=== PATIENT | female | born 1990 | race Caucasian/White ===

== ENCOUNTER 2018-02-15 15:49 | Emergency (ER) | payer OTHER ==
[~2018-02-15] VITALS: Ht 165.1 cm; Wt 68.0 kg
[~2018-02-15 15:49] MED LIST: ACETAMINOPHEN-1 EAC1 PO; ADDERALL 10 MG10 MG PO; ALKA-SELTZER O1 EACH PO; ASPIRIN81 M2 PO; ATIVAN0.5 M1 PO; BUPRENORPHINE HC2 MG SL; CIPRO250 M1 PO; CIPRO500 MG PO; CIPROFLOXACIN500 M1 PO; CLEOCIN HCL150 MG PO; CYCLOBENZAPRINE5 MG PO; FLEXERIL PO; HYDROCODON-ACE1 EAC7 PO; HYDROCODONE-AP1 EAC6 PO; HYDROXYCHLOROQ200 M1 PO; HYTRIN 5 M5 MG/1 CAP PO; IBUPROFEN 800800 M1 PO; LABETALOL 100100 MG GT; LEVAQUIN 500 M500 M2 PO; LOPRESSOR50 PO; MACROBID 100 M100 M1 PO; MAGOX 400400 MG PO; MOBIC7.5 MG PO; MULTIVITAMINS1 EAC7; NOHOMEMEDICATIONS; NORCO 5-325 TA1 EAC1 PO; NORCO 5-325 TA1 EACH PO; NORVASC10 MG PO; OXYCODONE HCL 55 MG PO; PENICILLIN VK500 M1 PO; PERCOCET 5-3251 EACH PO; PREDNISONE 20 M20 MG PO; PROAIR HFA8.5 GM INH; PYRIDIUM200 MG PO; REMERON15 MG; STRATTERA10 MG; ULTRAM 50MG TAB50 MG PO; VENTOLIN HFA 1818 GM INH; VITATRUE COMBO1 EACH PO; XANAX 0.25 MG0.25 MG; XANAX 0.5 MG0.5 MG PO; XANAX1 MG PO; ZOFRAN ODT4 MG PO; ZOFRAN4 MG PO
[2018-02-15] MEDS ORDERED: REMERON15 M2 PO (15:58)
[2018-02-15] MEDS ORDERED: HYDROCODONE-AP1 EAC6 PO (17:03)
[2018-02-15 17:14] VITALS: BP 188/116
== END 2018-02-15 17:14 | disposition home or self-care (01) ==
LOC: M.ERS 15:49
DX: K08.89 Other specified disorders of teeth and supporting structures (principal); F41.0 Panic disorder [episodic paroxysmal anxiety]; F17.210 Nicotine dependence, cigarettes, uncomplicated; Z88.8 Allergy status to other drugs, medicaments and biological substances; Z87.442 Personal history of urinary calculi

== ENCOUNTER 2019-02-14 21:03 | Emergency (ER) | payer OTHER ==
[~2019-02-14 21:03] MED LIST changes: +REMERON15 M2 PO
== END 2019-02-14 22:34 ==
LOC: M.ERS 21:03
DX: Z53.21 Procedure and treatment not carried out due to patient leaving prior to being seen by health care provider (principal)

== ENCOUNTER 2019-03-31 19:58 | Emergency (ER) | payer OTHER | END 2019-03-31 20:06 | disposition left against medical advice (07) | LOC: M.ERS 19:58 | DX: Z53.21 Procedure and treatment not carried out due to patient leaving prior to being seen by health care provider (principal) ==

== ENCOUNTER 2019-04-05 20:58 | Emergency (ER) | payer OTHER ==
[~2019-04-05] VITALS: Ht 165.1 cm; Wt 61.0 kg
[2019-04-05] MEDS ORDERED: CLONAZEPAM 0.50.5 M1 PO (21:11)
[2019-04-05 21:33] LABS: ABSOLUTE BASOPHILS 0.2 thou/uL (0.0-0.2); ABSOLUTE EOSINOPHILS 0.1 thou/uL (0.0-0.7); ABSOLUTE LYMPHOCYTES 2.5 thou/uL (0.8-5.3); ABSOLUTE MONOCYTES 0.6 thou/uL (0.0-1.2); ABSOLUTE NEUTROPHILS 7.8 thou/uL (1.6-8.1); BASOPHILS 1.5 %; EOSINOPHILS 0.8 %; HEMATOCRIT 35.5 % (37.0-47.0); HEMOGLOBIN 11.8 gm/dL (12.0-15.0); LYMPHOCYTES 22.3 %; MCH 27.9 pg (26.0-34.0); MCHC 33.3 g/dL (28.0-37.0); MCV 83.8 fL (80.0-100.0); MONOCYTES 5.1 %; MPV 10.4 fl. (7.2-11.1); NUCLEATED RBCS 0 /100WBC; PLATELET COUNT* 124 thou/uL (150-400); POLYS 70.3 %; RBC 4.24 mil/uL (4.20-5.00); RDW-CV 12.8 % (10.5-14.5); WBC 11.1 thou/uL (4.0-11.0)
[2019-04-05 21:41] LABS: ANION GAP 8 mmol/L (7-16); BUN 6 mg/dL (7-18); CALCIUM 8.4 mg/dL (8.5-10.1); CHLORIDE 104 mmol/L (98-107); CO2 27 mmol/L (21-32); GLUCOSE 120 mg/dL (70-99); SODIUM 139 mmol/L (136-145)
[2019-04-05 21:42] LABS: POTASSIUM 2.9 mmol/L (3.5-5.1)
[2019-04-05 21:50] LABS: ALBUMIN 3.2 g/dL (3.4-5.0); ALKALINE PHOSPHATASE 61 U/L (46-116); SGOT 17 U/L (15-37); SGPT 21 U/L (30-65); TOTAL BILIRUBIN 0.1 mg/dL (<0.1-1.0); TOTAL PROTEIN 7.5 g/dL (6.4-8.2); TROPONIN-I LEVEL <0.06 ng/mL (<0.06)
[2019-04-05 23:25] LABS: POTASSIUM 3.1 mmol/L (3.5-5.1); TROPONIN-I LEVEL <0.06 ng/mL (<0.06)
[2019-04-05] MEDS ORDERED: MAGOX 400400 MG PO (23:47)
[2019-04-05] MEDS ORDERED: POTASSIUM20 PO (23:47)
[2019-04-06 00:08] VITALS: BP 118/75
--- NOTE | 2019-04-06 11:35 | EKG ---
[place] [address] ELECTROCARDIOGRAM REPORT Name: ZORAIDA GARDNER Room: [facility]#: [id number] Admission: 04/05/19 Attend Phys: Discharge: 04/06/19 Date of : 88 Report #: [id number] THIS REPORT FOR: //name// [facility] ED Test Date: 2019-04-05 Test Time: 21:16:54 Pat Name: ZORAIDA GARDNER Department: Room: Gender: F [employer]: [place] : 1990 Requested By: Jean Carolina Order Number: [id number] MD: William Philip Measurements Intervals [place] Rate: 87 P: 46 ME: 169 QRS: -12 QRSD: 107 T: 36 QT: 346 QTc: 417 Interpretive Statements Sinus rhythm RSR' in V1 or V2, probably normal variant Possible left atrial enlargement Left axis deviation Compared to ECG 02/18/2017 18:09:18 No significant changes Electronically Signed On 04-06-2019 11:35:07 CDT by William Philip [email or web address] <ELECTRONICALLY SIGNED> By: William Philip MD, [facility] 04/06/19 1135 15 15 William Philip MD, [facility] /EPI
== END 2019-04-06 00:10 | disposition home or self-care (01) ==
LOC: M.ERS 20:58
PROVIDERS: Emergency Medicine Emergency Medical Services
DX: F41.9 Anxiety disorder, unspecified (principal); E87.6 Hypokalemia; M32.9 Systemic lupus erythematosus, unspecified; F17.210 Nicotine dependence, cigarettes, uncomplicated; Z88.8 Allergy status to other drugs, medicaments and biological substances; Z90.49 Acquired absence of other specified parts of digestive tract; Z87.442 Personal history of urinary calculi

== ENCOUNTER 2019-04-30 14:26 | Emergency (ER) | payer OTHER ==
[~2019-04-30] VITALS: Ht 170.2 cm; Wt 61.2 kg
[~2019-04-30 14:26] MED LIST changes: +CLONAZEPAM 0.50.5 M1 PO; +POTASSIUM20 PO
[2019-04-30] MEDS ORDERED: NEURONTIN 400400 M1 PO (14:42)
[2019-04-30] MEDS ORDERED: PREDNISONE 10 M10 MG PO (14:42)
[2019-04-30] MEDS ORDERED: HYDROCHLOROTHIA25 M2 PO (14:42)
[2019-04-30] MEDS ORDERED: HYDROXYCHLOROQ200 M1 PO (14:43)
[2019-04-30] MEDS ORDERED: KEFLEX500 M1 PO (15:09)
[2019-04-30] MEDS ORDERED: NORCO 5-325 TA1 EAC1 PO (15:09)
[2019-04-30] MEDS ORDERED: BACTRIM DS TAB1 EACH PO (15:09)
[2019-04-30 15:17] VITALS: BP 125/80
== END 2019-04-30 15:18 | disposition home or self-care (01) ==
LOC: M.ERS 14:26
DX: S71.102A Unspecified open wound, left thigh, initial encounter (principal); L02.416 Cutaneous abscess of left lower limb; F41.0 Panic disorder [episodic paroxysmal anxiety]; M32.9 Systemic lupus erythematosus, unspecified; F17.210 Nicotine dependence, cigarettes, uncomplicated; Z90.49 Acquired absence of other specified parts of digestive tract; Z87.442 Personal history of urinary calculi; Z88.8 Allergy status to other drugs, medicaments and biological substances; X58.XXXA Exposure to other specified factors, initial encounter; Y93.89 Activity, other specified; Y92.89 Other specified places as the place of occurrence of the external cause; Y99.8 Other external cause status

== ENCOUNTER 2019-07-22 14:24 | Emergency (ER) | payer MEDICAID ==
[~2019-07-22] VITALS: Ht 162.6 cm; Wt 59.0 kg
[~2019-07-22 14:24] MED LIST changes: +BACTRIM DS TAB1 EACH PO; +HYDROCHLOROTHIA25 M2 PO; +KEFLEX500 M1 PO; +NEURONTIN 400400 M1 PO; +PREDNISONE 10 M10 MG PO
[2019-07-22] MEDS ORDERED: GABAPENTIN100 MG PO (14:42)
[2019-07-22] MEDS ORDERED: AMOXICILLIN 25250 M1 PO (14:42)
[2019-07-22] MEDS ORDERED: CEFDINIR300 MG PO (14:55)
[2019-07-22] MEDS ORDERED: NORCO 5-325 TA1 EAC1 PO (14:55)
[2019-07-22 14:57] VITALS: BP 139/89
== END 2019-07-22 14:57 | disposition home or self-care (01) ==
LOC: M.ERS 14:24
DX: H66.93 Otitis media, unspecified, bilateral (principal); A18.4 Tuberculosis of skin and subcutaneous tissue; F41.0 Panic disorder [episodic paroxysmal anxiety]; F17.210 Nicotine dependence, cigarettes, uncomplicated; Z88.5 Allergy status to narcotic agent; Z88.8 Allergy status to other drugs, medicaments and biological substances; Z90.49 Acquired absence of other specified parts of digestive tract; Z87.442 Personal history of urinary calculi

== ENCOUNTER 2019-08-05 18:29 | Emergency (ER) | payer MEDICAID ==
[~2019-08-05] VITALS: Ht 165.1 cm; Wt 59.0 kg
[~2019-08-05 18:29] MED LIST changes: +AMOXICILLIN 25250 M1 PO; +CEFDINIR300 MG PO; +GABAPENTIN100 MG PO
[2019-08-05] MEDS ORDERED: PLAQUENIL200 MG PO (18:40)
[2019-08-05] MEDS ORDERED: KLONOPIN0.5 MG PO (19:02)
[2019-08-05] MEDS ORDERED: PHENERGAN 25 MG25 M1 PO ×2 (19:03)
[2019-08-05 19:16] VITALS: BP 159/105
== END 2019-08-05 19:17 | disposition home or self-care (01) ==
LOC: M.ERS 18:29
DX: F41.9 Anxiety disorder, unspecified (principal); Z76.0 Encounter for issue of repeat prescription; M32.9 Systemic lupus erythematosus, unspecified; F17.210 Nicotine dependence, cigarettes, uncomplicated; Z88.5 Allergy status to narcotic agent; Z88.8 Allergy status to other drugs, medicaments and biological substances; Z90.49 Acquired absence of other specified parts of digestive tract; Z87.442 Personal history of urinary calculi

== ENCOUNTER 2019-08-06 18:02 | Emergency (ER) | payer MEDICAID ==
[~2019-08-06] VITALS: Ht 172.7 cm; Wt 59.0 kg
[~2019-08-06 18:02] MED LIST changes: +KLONOPIN0.5 MG PO; +PHENERGAN 25 MG25 M1 PO; +PLAQUENIL200 MG PO
[2019-08-06 18:14] VITALS: BP 150/109
[2019-08-06 18:34] LABS: NUCLEATED RBCS 0 /100WBC
[2019-08-06 18:36] LABS: ABSOLUTE BASOPHILS 0.1 thou/uL (0.0-0.2); ABSOLUTE LYMPHOCYTES 2.9 thou/uL (0.8-5.3); ABSOLUTE MONOCYTES 0.7 thou/uL (0.0-1.2); ABSOLUTE NEUTROPHILS 5.1 thou/uL (1.6-8.1); BASOPHILS 0.8 %; EOSINOPHILS 0.4 %; HEMATOCRIT 40.7 % (37.0-47.0); MCH 29.4 pg (26.0-34.0); MCHC 34.4 g/dL (28.0-37.0); MCV 85.4 fL (80.0-100.0); MONOCYTES 7.9 %; MPV 9.8 fl. (7.2-11.1); POLYS 57.9 %; RBC 4.77 mil/uL (4.20-5.00); RDW-CV 12.9 % (10.5-14.5); WBC 8.8 thou/uL (4.0-11.0)
[2019-08-06 18:49] LABS: CALCIUM 9.5 mg/dL (8.5-10.1); CREATININE 0.8 mg/dL (0.6-1.3); PLATELET COUNT* 46 thou/uL (150-400); POTASSIUM 4.2 mmol/L (3.5-5.1)
[2019-08-06 20:57] VITALS: BP 0/0
[2019-08-25] MEDS ORDERED: DEXAMETHASONE 44 M1 PO (17:43)
== END 2019-08-06 20:59 | disposition left against medical advice (07) ==
LOC: M.ERS 18:02 → M.TBA-ER 18:55 → M.ERS 18:55 → M.TBA-ER 20:41
PROVIDERS: Family Medicine
DX: D69.6 Thrombocytopenia, unspecified (principal); M32.9 Systemic lupus erythematosus, unspecified; F17.210 Nicotine dependence, cigarettes, uncomplicated; Z88.5 Allergy status to narcotic agent; Z88.8 Allergy status to other drugs, medicaments and biological substances; Z90.49 Acquired absence of other specified parts of digestive tract; Z87.442 Personal history of urinary calculi

== ENCOUNTER 2019-08-15 21:17 | Emergency (ER) | payer OTHER, MEDICAID ==
[~2019-08-15] VITALS: Ht 165.1 cm; Wt 65.3 kg
[2019-08-15] MEDS ORDERED: NEURONTIN 400M400 M2 PO (21:25)
[2019-08-15] MEDS ORDERED: TRAZODONE HCL50 MG PO (21:25)
[2019-08-15] MEDS ORDERED: RAYOS5 MG PO (21:26)
[2019-08-15 22:00] LABS: URINE BILIRUBIN NEGATIVE (Negative); URINE BLOOD 3+ (Negative); URINE COLOR YELLOW; URINE GLUCOSE-RANDOM NEGATIVE (Negative); URINE KETONES NEGATIVE (Negative); URINE LEUKOCYTES-REFLEX NEGATIVE (Negative); URINE NITRITE-REFLEX NEGATIVE (Negative); URINE PROTEIN NEGATIVE (Negative); URINE SPECIFIC GRAVITY 1.015 (1.005-1.030); URINE UROBILINOGEN 0.2 E.U./dl (0.2-1.0)
[2019-08-15 22:01] LABS: URINE CLARITY HAZY
[2019-08-15 22:12] LABS: ABSOLUTE EOSINOPHILS 0.1 thou/uL (0.0-0.7); ABSOLUTE LYMPHOCYTES 1.8 thou/uL (0.8-5.3); ABSOLUTE MONOCYTES 0.5 thou/uL (0.0-1.2); ABSOLUTE NEUTROPHILS 6.2 thou/uL (1.6-8.1); BASOPHILS 0.4 %; EOSINOPHILS 1.1 %; HEMATOCRIT 36.8 % (37.0-47.0); HEMOGLOBIN 12.6 gm/dL (12.0-15.0); LYMPHOCYTES 20.7 %; MCH 29.3 pg (26.0-34.0); MCHC 34.3 g/dL (28.0-37.0); MCV 85.4 fL (80.0-100.0); MONOCYTES 5.7 %; MPV 9.5 fl. (7.2-11.1); NUCLEATED RBCS 0 /100WBC; PLATELET COUNT* 59 thou/uL (150-400); POLYS 72.1 %; RDW-CV 12.6 % (10.5-14.5); WBC 8.6 thou/uL (4.0-11.0)
[2019-08-15 22:14] LABS: BACTERIA-REFLEX None Seen /HPF (None Seen); CASTS None Seen /LPF (None Seen); CRYSTALS None Seen /LPF (None Seen); SQUAMOUS NONE SEEN /LPF (0-3); URINE RBC 3-10 Few /HPF (0-2); URINE WBC-REFLEX 0-5 Rare /HPF (0-5)
[2019-08-15 22:27] LABS: INFLUENZA A ANTIGEN Negative (Negative); INFLUENZA B ANTIGEN Negative (Negative)
[2019-08-15 22:32] LABS: CALCIUM 8.3 mg/dL (8.5-10.1); CREATININE 0.8 mg/dL (0.6-1.3); POTASSIUM 3.6 mmol/L (3.5-5.1)
[2019-08-15 22:36] LABS: ALBUMIN 3.5 g/dL (3.4-5.0); TOTAL BILIRUBIN 0.4 mg/dL (<0.1-1.0)
[2019-08-15] MEDS ORDERED: LORAZEPAM 0.50.5 MG PO (22:53)
[2019-08-15] MEDS ORDERED: DOXYCYCLINE 10100 MG PO (22:53)
[2019-08-15] MEDS ORDERED: FLAGYL500 M1 PO (22:53)
[2019-08-15 23:21] VITALS: BP 111/65
== END 2019-08-15 23:24 | disposition home or self-care (01) ==
LOC: M.ERS 21:17
PROVIDERS: Emergency Medicine
DX: N72 Inflammatory disease of cervix uteri (principal); F41.9 Anxiety disorder, unspecified; F17.210 Nicotine dependence, cigarettes, uncomplicated; Z87.442 Personal history of urinary calculi; Z90.49 Acquired absence of other specified parts of digestive tract; Z88.5 Allergy status to narcotic agent; Z91.048 Other nonmedicinal substance allergy status

== ENCOUNTER 2019-08-28 17:10 | Emergency (ER) | payer OTHER, MEDICAID ==
[~2019-08-28] VITALS: Ht 165.1 cm; Wt 63.5 kg
[~2019-08-28 17:10] MED LIST changes: +DEXAMETHASONE 44 M1 PO; +DOXYCYCLINE 10100 MG PO; +FLAGYL500 M1 PO; +LORAZEPAM 0.50.5 MG PO; +NEURONTIN 400M400 M2 PO; +RAYOS5 MG PO; +TRAZODONE HCL50 MG PO
[2019-08-28 17:35] VITALS: BP 163/22
[2019-08-28] MEDS ORDERED: NEURONTIN 400M400 M2 PO (19:37)
[2019-08-28] MEDS ORDERED: CLONAZEPAM 1 MG1 M1 PO (19:37)
== END 2019-08-28 19:42 | disposition home or self-care (01) ==
LOC: M.ERS 17:10
DX: F41.9 Anxiety disorder, unspecified (principal); Z76.0 Encounter for issue of repeat prescription; M32.9 Systemic lupus erythematosus, unspecified; F17.210 Nicotine dependence, cigarettes, uncomplicated; Z88.5 Allergy status to narcotic agent; Z88.8 Allergy status to other drugs, medicaments and biological substances; Z90.49 Acquired absence of other specified parts of digestive tract; Z87.442 Personal history of urinary calculi

== ENCOUNTER 2019-08-31 18:16 | Emergency (ER) | payer OTHER, MEDICAID ==
[~2019-08-31] VITALS: Ht 165.1 cm; Wt 63.5 kg
[~2019-08-31 18:16] MED LIST changes: +CLONAZEPAM 1 MG1 M1 PO
[2019-08-31 18:34] VITALS: BP 155/98
== END 2019-08-31 18:36 | disposition home or self-care (01) ==
LOC: M.ERS 18:16
DX: F41.0 Panic disorder [episodic paroxysmal anxiety] (principal); M32.9 Systemic lupus erythematosus, unspecified; I73.00 Raynaud's syndrome without gangrene; F17.210 Nicotine dependence, cigarettes, uncomplicated; Z88.5 Allergy status to narcotic agent; Z88.8 Allergy status to other drugs, medicaments and biological substances; Z90.49 Acquired absence of other specified parts of digestive tract; Z87.442 Personal history of urinary calculi

== ENCOUNTER 2021-07-18 18:25 | Inpatient (IN) | payer OTHER, MEDICAID ==
[~2021-07-18] VITALS: Ht 165.1 cm; Wt 54.4 kg
[2021-07-18 18:33] VITALS: BP 106/63
[2021-07-18] MEDS ORDERED: PREDNISONE 10 M10 MG PO (18:35)
[2021-07-18] MEDS ORDERED: PREDNISONE 20 M20 MG PO (18:36)
[2021-07-18 20:12] LABS: ABSOLUTE EOSINOPHILS 0.2 thou/uL (0.0-0.7); ABSOLUTE LYMPHOCYTES 2.1 thou/uL (0.8-5.3); ABSOLUTE MONOCYTES 0.6 thou/uL (0.0-1.2); BASOPHILS 0.8 %; EOSINOPHILS 2.6 %; HEMATOCRIT 35.3 % (37.0-47.0); HEMOGLOBIN 11.8 gm/dL (12.0-15.0); LYMPHOCYTES 35.6 %; MCH 28.3 pg (26.0-34.0); MCHC 33.5 g/dL (28.0-37.0); MCV 84.4 fL (80.0-100.0); MONOCYTES 10.2 %; MPV 9.9 fl. (7.2-11.1); NUCLEATED RBCS 0 /100WBC; PLATELET COUNT* 175 thou/uL (150-400); POLYS 50.8 %; RBC 4.18 mil/uL (4.20-5.00); RDW-CV 13.3 % (10.5-14.5); WBC 5.9 thou/uL (4.0-11.0)
[2021-07-18 20:21] LABS: CALCIUM 8.1 mg/dL (8.5-10.1); POTASSIUM 3.6 mmol/L (3.5-5.1)
[2021-07-18 20:26] LABS: TOTAL BILIRUBIN 0.2 mg/dL (<0.1-1.0)
[2021-07-19 03:58] VITALS: BP 110/56
[2021-07-19 05:06] LABS: URINE BILIRUBIN NEGATIVE (Negative); URINE BLOOD NEGATIVE (Negative); URINE CLARITY CLEAR; URINE COLOR YELLOW; URINE GLUCOSE-RANDOM NEGATIVE (Negative); URINE KETONES NEGATIVE (Negative); URINE LEUKOCYTES-REFLEX NEGATIVE (Negative); URINE NITRITE-REFLEX NEGATIVE (Negative); URINE PROTEIN NEGATIVE (Negative); URINE SPECIFIC GRAVITY 1.015 (1.005-1.030); URINE UROBILINOGEN 0.2 E.U./dl (0.2-1.0)
[2021-07-19 05:13] LABS: AMP/METHAMP POSITIVE (Negative); BARBITURATES Negative (Negative); BENZODIAZEPINES POSITIVE (Negative); COCAINE Negative (Negative); METHADONE Negative (Negative); OPIATES POSITIVE (Negative); PCP Negative (Negative); THC Negative (Negative)
[2021-07-19 08:08] VITALS: BP 106/48
--- NOTE | 2021-07-19 10:25 | NUR ---
cm completed assessment with pt who indicated she lives in home w/ s/o and children. pt has no dmes. pt is independent with adls. pt has no hx with hh or snf.
[2021-07-19 14:50] VITALS: BP 113/74
== END 2021-07-19 14:52 | disposition left against medical advice (07) | DRG 603 ==
LOC: M.ERS 18:25 → M.TBA-ER 21:24
PROVIDERS: Nurse Practitioner Family; ADMIT Internal Medicine; ATTEND Internal Medicine
DX: L03.012 Cellulitis of left finger (principal); I73.00 Raynaud's syndrome without gangrene; F41.9 Anxiety disorder, unspecified; F17.210 Nicotine dependence, cigarettes, uncomplicated; F19.10 Other psychoactive substance abuse, uncomplicated; M32.9 Systemic lupus erythematosus, unspecified; Z20.822 Contact with and (suspected) exposure to COVID-19; Z53.29 Procedure and treatment not carried out because of patient's decision for other reasons; Z90.49 Acquired absence of other specified parts of digestive tract; Z87.442 Personal history of urinary calculi; Z88.6 Allergy status to analgesic agent; Z88.8 Allergy status to other drugs, medicaments and biological substances

== ENCOUNTER 2021-09-05 20:19 | Emergency (ER) | payer OTHER, MEDICAID ==
[~2021-09-05] VITALS: Ht 162.6 cm; Wt 52.2 kg
[2021-09-05] MEDS ORDERED: NEURONTIN800 MG PO (20:32)
[2021-09-05] MEDS ORDERED: HALDOL 0.5 MG0.5 M1 PO (20:33)
[2021-09-05] MEDS ORDERED: SEROQUEL 25 MG25 M1 PO (20:33)
[2021-09-05] MEDS ORDERED: HYDROXYCHLOROQ200 M1 PO (20:33)
[2021-09-05] MEDS ORDERED: DEXAMETHASONE 44 M1 PO (20:34)
[2021-09-05 22:20] LABS: ABSOLUTE EOSINOPHILS 0.1 thou/uL (0.0-0.7); ABSOLUTE LYMPHOCYTES 1.6 thou/uL (0.8-5.3); ABSOLUTE MONOCYTES 0.8 thou/uL (0.0-1.2); ABSOLUTE NEUTROPHILS 3.2 thou/uL (1.6-8.1); BASOPHILS 0.8 %; EOSINOPHILS 2.4 %; HEMATOCRIT 38.4 % (37.0-47.0); HEMOGLOBIN 12.6 gm/dL (12.0-15.0); LYMPHOCYTES 27.7 %; MCH 27.9 pg (26.0-34.0); MCHC 32.9 g/dL (28.0-37.0); MCV 84.7 fL (80.0-100.0); MONOCYTES 13.2 %; NUCLEATED RBCS 0 /100WBC; PLATELET COUNT* 172 thou/uL (150-400); POLYS 55.9 %; RBC 4.53 mil/uL (4.20-5.00); WBC 5.7 thou/uL (4.0-11.0)
[2021-09-05 22:25] LABS: CALCIUM 8.4 mg/dL (8.5-10.1); CREATININE 0.7 mg/dL (0.6-1.3)
[2021-09-05 22:28] LABS: APTT 25.7 Seconds (25.0-31.3); INR 0.9; PROTIME 9.6 Seconds (9.20-11.50)
[2021-09-05 22:29] LABS: ALBUMIN 3.1 g/dL (3.4-5.0); TOTAL BILIRUBIN 0.2 mg/dL (<0.1-1.0); TOTAL PROTEIN 7.9 g/dL (6.4-8.2)
[2021-09-05 22:42] VITALS: BP 126/92
== END 2021-09-05 22:42 ==
LOC: M.ERS 20:19
PROVIDERS: Personal Emergency Response Attendant
DX: M32.9 Systemic lupus erythematosus, unspecified (principal); F41.9 Anxiety disorder, unspecified; F17.210 Nicotine dependence, cigarettes, uncomplicated; Z88.5 Allergy status to narcotic agent; Z71.1 Person with feared health complaint in whom no diagnosis is made; Z90.49 Acquired absence of other specified parts of digestive tract; Z79.899 Other long term (current) drug therapy; Z88.6 Allergy status to analgesic agent; Z91.048 Other nonmedicinal substance allergy status